=== PATIENT | female | born 1995 ===

== ENCOUNTER 2017-09-09 11:58 | Emergency (ER) | payer OTHER ==
[~2017-09-09] VITALS: Ht 152.4 cm; Wt 108.9 kg
--- NOTE | 2017-09-09 12:25 | ED GI/GU/ABDOMINAL COMPLAINT ---
History of Present Illness General Chief Complaint: Abdominal Pain/Flank Pain Stated Complaint: ?INTESTINAL BLOCK PER PT, HX OF SAME Source: patient Exam Limitations: clinical condition Vital Signs & Intake/Output Vital Signs & Intake/Output Vital Signs Date Time Temp Pulse Resp B/P B/P Pulse O2 O2 Flow FiO2 Mean Ox Delivery Rate 09/09 1841 97.8 88 18 122/74 98 Room Air Room Air 09/09 1445 97.6 78 18 113/55 97 Room Air Room Air 09/09 1208 97.8 112 20 154/87 99 Room Air Allergies Coded Allergies: buspirone (From BUSPAR) (Intermediate, RASH 09/09/17) lamotrigine (From LAMICTAL) (Intermediate, RASH 09/09/17) Reconcile Medications Albuterol Sulfate (Ventolin Hfa) 90 MCG HFA.AER.AD 2 PUF INH Q4-6 PRN PRN asthma Ondansetron (Zofran Odt) 4 MG TAB.RAPDIS 1 TAB SL TID nausea Oxycodone HCl/Acetaminophen (Percocet 5-325 MG Tablet) 5 MG-325 MG TABLET 1 TAB PO 4 TIMES/DAY pain Promethazine HCl 25 MG TABLET 1 TAB PO Q6P PRN nausea Triage Note: PT TO ER C/C 1 DAY HX OF "BOWEL BLOCKAGE". HX OF "AT LEAST 10 EPISODES" OF INTUSSUSSEPTION WHICH USUALLY SELF-CORRECTS. +V LNBM YESTERDAY. LMBP "2 WEEKS AGO" Triage Nurses Notes Reviewed? yes ? N Is pt currently ? No Onset: Abrupt Duration: day(s): Timing: recent history Radiation: no radiation Activities at Onset: none Prior Abdominal Problems: none No Modifying Factors: none HPI: 22-year-old female comes into emergency room complaints of severe abdominal pain has been going on since last night. She has a history of intussusception. She has not had any abdominal surgeries in the past and has resolved on its own. Pain is midabdomen to epigastric region. Sharp. Continuous. Associated nausea vomiting and dry heaves. Denies any changes in bowel movement. She comes in for further evaluation. Past History Travel History Traveled to [place] past 21 day No Medical History Any Pertinent Medical History? see below for history Respiratory: asthma Gastrointestinal: INTUSSUSSEPTION Surgical History Surgical History: non-contributory Psychosocial History What is your primary language Niuean Tobacco Use: Never used Family History Hx Contributory? No Review of Systems Review of Systems Constitutional: Reports: no symptoms. EENTM: Reports: no symptoms. Respiratory: Reports: no symptoms. Cardiovascular: Reports: no symptoms. GI: Reports: see HPI. Genitourinary: Reports: no symptoms. Musculoskeletal: Reports: no symptoms. Skin: Reports: no symptoms. Neurological/Psychological: Reports: no symptoms. Hematologic/Endocrine: Reports: no symptoms. Immunologic/Allergic: Reports: no symptoms. All Other Systems: Reviewed and Negative Physical Exam Physical Exam General Appearance: well developed/nourished, alert, moderate distress Head: atraumatic, normal appearance Eyes: Bilateral: normal appearance, EOMI. Ears, Nose, Throat, Mouth: hearing grossly normal, moist mucous membrane Neck: normal inspection, full range of motion Respiratory: normal breath sounds, no respiratory distress Cardiovascular: regular rate/rhythm Gastrointestinal: soft, tenderness Back: normal inspection Extremities: normal range of motion Neurologic/Psych: awake, alert, oriented x 3 Skin: intact, normal color Core Measures ACS in differential dx? No Sepsis Present: No Sepsis Focused Exam Completed? No Progress Differential Diagnosis: appendicitis, biliary colic, bowel obstruction, cholecystitis, diverticulitis, ectopic , gastritis, ovarian cyst, ovarian torsion, UTI/pyelo, intussusception Plan of Care: Orders Procedure Date/time Status Add-on Test (ER Only) 09/09 1257 Active Add-on Test (ER Only) 09/09 1224 Active LACTIC ACID 09/09 1221 Complete HUMAN BETA HCG SCREEN 09/09 1221 Complete URINE 09/09 1205 Complete URINALYSIS 09/09 1205 Complete COMPREHENSIVE METABOLIC PANEL 09/09 1205 Complete CBC WITHOUT DIFFERENTIAL 09/09 1205 Complete Laboratory Tests 09/09/17 1308: Urine Color YEL, Urine Clarity CLEAR, Urine pH 6.0, Ur Specific [place] >= 1.030 , Urine Protein NEG, Urine Ketones NEG, Urine Nitrite NEG, Urine Bilirubin NEG, Urine Urobilinogen 0.2, Ur Leukocyte Esterase NEG, Ur Microscopic SEDIMENT EXAMINED, Urine RBC 3-5, Ur Epithelial Cells MOD H, Urine Bacteria FEW H, Urine Hemoglobin MOD H, Urine Glucose NEG, Urine Test NEGATIVE 09/09/17 1221: Anion Gap 14, Estimated GFR > 60, BUN/Creatinine Ratio 20.0, Glucose 96, Lactic Acid 1.5, Calcium 9.5, Total Bilirubin 0.5, AST 29, ALT 40, Alkaline Phosphatase 81, Total Protein 8.0, Albumin 4.1, Globulin 3.9, Albumin/Globulin Ratio 1.1, Total Beta HCG NEGATIVE, CBC w Diff NO MAN DIFF REQ, RBC 4.70, MCV 72.8 L, MCH 23.0 L, MCHC 31.5 L, RDW 18.5 H, MPV 9.0, Gran % 73.9, Lymphocytes % 17.4 L, Monocytes % 7.5, Eosinophils % 1.0, Basophils % 0.2, Absolute Granulocytes 10.1 H, Absolute Lymphocytes 2.4, Absolute Monocytes 1.0 H, Absolute Eosinophils 0.1 , Absolute Basophils 0 Diagnostic Imaging: Viewed by Me: CT Scan, Ultrasound. Discussed w/RAD: CT Scan, Ultrasound. Radiology Impression: PATIENT: MEAGAN ARMENDARIZ PRESENT AGE: 22 PATIENT ACCOUNT NO: [id number] : 96 LOCATION: [facility] ORDERING PHYSICIAN: Dunia SHOER SERVICE DATE: 09/09/17 EXAM TYPE: CAT - CT ABD & PELVIS W IV CONTRAST EXAMINATION: CT ABDOMEN AND PELVIS WITH CONTRAST CLINICAL INFORMATION: Abdominal pain, vomiting. History of intussusception. COMPARISON: None. TECHNIQUE: Multidetector volumetric imaging was performed of the abdomen and pelvis following IV administration of 95 mL of Optiray 320 intravenous contrast. Sagittal and coronal reformatted images were obtained on the technologist's workstation. DLP: 1080 mGy-cm FINDINGS: LUNG BASES: The visualized lung bases are unremarkable. LIVER, GALLBLADDER, AND BILIARY TREE: Homogeneous enhancement of the liver. No focal lesions are seen. No intrahepatic biliary dilatation. There is a gallstone present. No obvious gallbladder wall thickening or inflammatory changes in this region. Homogeneous attenuation. No focal lesion seen. PANCREAS: Homogeneous attenuation. No inflammatory changes are seen. SPLEEN: Unremarkable. ADRENAL GLANDS: Unremarkable. KIDNEYS AND URETERS: The kidneys are normal in size, shape, and attenuation. No hydronephrosis, hydroureter, or calculi seen. No perinephric stranding. BLADDER: Underdistended. GASTROINTESTINAL TRACT: The stomach is underdistended limiting evaluation. The small bowel loops are of normal caliber, without evidence of dilatation. Majority of the small bowel loops are nondistended, limiting evaluation for intussusception. There is gas and stool throughout the large colon. No abnormal dilatation is seen. No colonic wall thickening or pericolonic inflammatory changes are evident, allowing for degree of distention. The appendix appears unremarkable. No free fluid. No free air is seen. ABDOMINAL WALL: No significant hernia is appreciated. LYMPH NODES: No pathologically enlarged lymph nodes by size criteria are noted in the abdomen or pelvis. Normal caliber aorta. VASCULAR: Normal caliber aorta. The portal vein is enhancing. PELVIC VISCERA: Evaluation limited on CT, grossly within normal limits. OSSEOUS STRUCTURES: No acute osseous abnormality. No suspicious bony lesions are seen. IMPRESSION: 1. No findings to suggest bowel obstruction. The small bowel loops are nondistended. This limits evaluation for intussusception. 2. No acute findings identified. Etiology of the patient's symptoms has not been determined by CT. Close clinical correlation. Further evaluation as clinically warranted. 3. Gallstone present. No acute inflammatory changes evident by CT. Clinically correlate. If there is clinical concern for cholecystitis, further evaluation with ultrasound should be obtained. DICTATED BY: Baldomero Engle MD DATE/TIME DICTATED:09/09/171401 STEAM PRESS OPERATOR:MARITZA DATE/TIME TRANSCRIBED:1401 CONFIDENTIAL, DO NOT COPY WITHOUT APPROPRIATE AUTHORIZATION. < Electronically signed in Other Vendor System> SIGNED BY: Baldomero Engle MD 09/09/17 1504, PATIENT: MEAGAN ARMENDARIZ PRESENT AGE: 22 PATIENT ACCOUNT NO: [id number] : 96 LOCATION: [facility] ORDERING PHYSICIAN: Memo SHORE SERVICE DATE: 09/09/17 EXAM TYPE : US - US-LIMITED ABDOMEN EXAMINATION: US ABDOMEN LIMITED CLINICAL INFORMATION: Right upper quadrant pain. Gallbladder stone on CAT scan.. COMPARISON: CT scan 09/09/2017. TECHNIQUE: Real-time imaging of the right upper quadrant abdominal viscera. Color Doppler exam used. FINDINGS: Exam limited by body habitus PANCREAS: Partially obscured by bowel gas. Portions of the pancreatic head are visualized are normal. LIVER: Normal. The liver demonstrates normal size, contour and echogenicity. No focal lesion or intrahepatic biliary duct dilatation. GALLBLADDER: There is a gallstone within the gallbladder measuring 8 x 3 x 3 mm. There is no gallbladder wall thickening and no pericholecystic fluid. COMMON BILE DUCT: Normal in caliber measuring 0.4 cm in diameter. RIGHT KIDNEY: Normal. No hydronephrosis. No renal calculi or focal parenchymal lesions. The kidney measures 9.5 cm in maximum dimension. FREE FLUID: None. IMPRESSION: Cholelithiasis. No acute change of the gallbladder wall. No bile duct dilatation. DICTATED BY: Mauricio Jackson MD DATE/TIME DICTATED:09/09/171806 STEAM PRESS OPERATOR:MARITZA DATE/TIME TRANSCRIBED:09/09/171806 CONFIDENTIAL, DO NOT COPY WITHOUT APPROPRIATE AUTHORIZATION. <Electronically signed in Other Vendor System> SIGNED BY: Mauricio Jackson MD 09/09/171811 Initial ED EKG: none Comments: 09/09/2017 7:05:46 PM Patient clinically looks well. Patient is in no apparent distress. Patient is nontoxic-appearing. Patient resting comfortably in room. Symptoms are most consistent with biliary colic. No evidence of acute cholecystitis. Pain improved. Resting comfortably in room upon reevaluation multiple times. Follow -up as an outpatient with surgery. Return if any other concerns. Departure Departure Disposition: HOME OR SELF CARE Condition: Stable Clinical Impression Primary Impression: Cholelithiasis Referrals: Regan HILL,Theo N. Additional Instructions: Take promethazine, Zofran, Percocet, and Ventolin as prescribed. Follow-up with general surgeon provided. Return if any increased pain or any other concerns worsening symptoms. Decrease fatty foods in diet. Please go over all results of today's visit with your primary care doctor. Contact your primary care doctor to let them know you were here in the emergency room. There may be nonspecific findings which may not be related to your visit today here in the emergency room but may require further evaluation and chronic monitoring by your primary care doctor. If you had a laceration today the chance of foreign body always remains. You should follow-up with your primary care doctor for recheck in 3-5 days for a wound check. If you had an x-ray done there is a chance that a fracture could have been missed on initial read and you should follow-up with your primary care doctor for repeat x-rays if symptoms persist. If your blood pressure was elevated here in the emergency room please have rechecked by [facility] primary care doctor within the next 48. If you were prescribed a narcotic here in the emergency room or any type of controlled substances you're not allowed to drive while taking this medication or operate any type of heavy machinery. Narcotics can make you feel lightheaded dizziness nausea and can cause constipation. You may need to picker and packer a stool softener. Thank you for choosing [facility] emergency room. Please return to the emergency room immediately if you have any other concerns worsening of symptoms. Departure Forms: Customer Survey General Discharge Information Prescriptions: Current Visit Scripts Ondansetron (Zofran Odt) 1 TAB SL TID #10 TAB Promethazine HCl 1 TAB PO Q6P PRN nausea #30 TAB Oxycodone HCl/Acetaminophen (Percocet 5-325 MG Tablet) 1 TAB PO 4 TIMES/DAY #15 TAB Albuterol Sulfate (Ventolin Hfa) 2 PUF INH Q4-6 PRN PRN asthma #1 INHAL
[2017-09-09 12:44] LABS: ABSOLUTE BASOPHIL COUNT 0 /CUMM (0.0-0.2); ABSOLUTE EOSINOPHIL COUNT 0.1 /CUMM (0.0-0.7); ABSOLUTE GRANULOCYTE CT 10.1 /CUMM (1.4-6.5); ABSOLUTE LYMPH COUNT 2.4 /CUMM (1.2-3.4); BASOPHIL % 0.2 % (0.0-2.0); GRANULOCYTE % 73.9 % (42.2-75.2); HEMATOCRIT 34.2 % (37-47); MEAN CORPUSCULAR HGB CONC 31.5 G/DL (33.0-37.0); MEAN CORPUSCULAR VOLUME 72.8 FL (81.0-99.0); PLATELET COUNT 460 /CUMM (130-400); RBC DISTRIBUTION WIDTH 18.5 % (11.5-14.5); WHITE BLOOD CELL COUNT 13.7 /CUMM (4.8-10.8)
--- NOTE | 2017-09-09 15:04 | CT SCAN REPORT ---
EXAMINATION: CT ABDOMEN AND PELVIS WITH CONTRAST CLINICAL INFORMATION: Abdominal pain, vomiting. History of intussusception. COMPARISON: None. TECHNIQUE: Multidetector volumetric imaging was performed of the abdomen and pelvis following IV administration of 95 mL of Optiray 320 intravenous contrast. Sagittal and coronal reformatted images were obtained on the technologist's workstation. DLP: 1080 mGy-cm FINDINGS: LUNG BASES: The visualized lung bases are unremarkable. LIVER, GALLBLADDER, AND BILIARY TREE: Homogeneous enhancement of the liver. No focal lesions are seen. No intrahepatic biliary dilatation. There is a gallstone present. No obvious gallbladder wall thickening or inflammatory changes in this region. Homogeneous attenuation. No focal lesion seen. PANCREAS: Homogeneous attenuation. No inflammatory changes are seen. SPLEEN: Unremarkable. ADRENAL GLANDS: Unremarkable. KIDNEYS AND URETERS: The kidneys are normal in size, shape, and attenuation. No hydronephrosis, hydroureter, or calculi seen. No perinephric stranding. BLADDER: Underdistended. GASTROINTESTINAL TRACT: The stomach is underdistended limiting evaluation. The small bowel loops are of normal caliber, without evidence of dilatation. Majority of the small bowel loops are nondistended, limiting evaluation for intussusception. There is gas and stool throughout the large colon. No abnormal dilatation is seen. No colonic wall thickening or pericolonic inflammatory changes are evident, allowing for degree of distention. The appendix appears unremarkable. No free fluid. No free air is seen. ABDOMINAL WALL: No significant hernia is appreciated. LYMPH NODES: No pathologically enlarged lymph nodes by size criteria are noted in the abdomen or pelvis. Normal caliber aorta. VASCULAR: Normal caliber aorta. The portal vein is enhancing. PELVIC VISCERA: Evaluation limited on CT, grossly within normal limits. OSSEOUS STRUCTURES: No acute osseous abnormality. No suspicious bony lesions are seen. IMPRESSION: 1. No findings to suggest bowel obstruction. The small bowel loops are nondistended. This limits evaluation for intussusception. 2. No acute findings identified. Etiology of the patient's symptoms has not been determined by CT. Close clinical correlation. Further evaluation as clinically warranted. 3. Gallstone present. No acute inflammatory changes evident by CT. Clinically correlate. If there is clinical concern for cholecystitis, further evaluation with ultrasound should be obtained.
--- NOTE | 2017-09-09 18:12 | ULTRASOUND REPORT ---
EXAMINATION: US ABDOMEN LIMITED CLINICAL INFORMATION: Right upper quadrant pain. Gallbladder stone on CAT scan.. COMPARISON: CT scan 09/09/2017. TECHNIQUE: Real-time imaging of the right upper quadrant abdominal viscera. Color Doppler exam used. FINDINGS: Exam limited by body habitus PANCREAS: Partially obscured by bowel gas. Portions of the pancreatic head are visualized are normal. LIVER: Normal. The liver demonstrates normal size, contour and echogenicity. No focal lesion or intrahepatic biliary duct dilatation. GALLBLADDER: There is a gallstone within the gallbladder measuring 8 x 3 x 3 mm. There is no gallbladder wall thickening and no pericholecystic fluid. COMMON BILE DUCT: Normal in caliber measuring 0.4 cm in diameter. RIGHT KIDNEY: Normal. No hydronephrosis. No renal calculi or focal parenchymal lesions. The kidney measures 9.5 cm in maximum dimension. FREE FLUID: None. IMPRESSION: Cholelithiasis. No acute change of the gallbladder wall. No bile duct dilatation.
[2017-09-09] MEDS ORDERED: VENTOLIN HFA18 GM INH (18:36)
[2017-09-09] MEDS ORDERED: ZOFRAN ODT4 M1 SL (18:36)
[2017-09-09] MEDS ORDERED: PERCOCET 5-3251 EACH PO (18:36)
[2017-09-09] MEDS ORDERED: PROMETHAZINE HC25 M3 PO (18:36)
[2017-09-09 18:41] VITALS: BP 122/74
== END 2017-09-09 18:57 ==
LOC: ERH 11:58
PROVIDERS: Physician Assistant
DX: K80.20 Calculus of gallbladder without cholecystitis without obstruction (principal)
CPT/HCPCS: 74177; 81001; 81025; 96374; 96375; J2405; J2550

== ENCOUNTER → 2017-10-03 | Day surgery (SDC) | payer OTHER ==
[~2017-10-03] VITALS: Ht 152.4 cm; Wt 107.0 kg
[~2017-10-03] MED LIST: PERCOCET 5-3251 EACH PO; PROMETHAZINE HC25 M3 PO; VENTOLIN HFA18 GM INH; ZOFRAN ODT4 M1 SL
--- NOTE | 2017-10-06 09:34 | Operative Report ---
Operative/Inv Procedure Report Surgery Date: 10/03/17 Name of Procedure: Laparoscopic cholecystectomy Pre-Operative Diagnosis: Symptomatic gallstones Post-Operative Diagnosis: Hydrops, cholecystitis Estimated Blood Loss: scant Surgeon/Sewing Machine Repairer Helper: Regan HILL,Theo SHORE Anesthesia: general endotracheal tube Operative/Procedure Note Note: Patient was positioned supine. After successful induction of general anesthesia, the patient's abdomen was clipped, prepped and draped in the usual sterile fashion. Local anesthetic was injected at the top of the umbilicus and then a curved horizontal incision little over a centimeter was made there with a 15 blade and then deepened to the midline fascia which was incised vertically a little over a centimeter. Both sides were secured with 0 Vicryl stay sutures and then the thin peritoneal layer was entered, 10 mm Dumont trocar inserted obliquely to the right, and the gas was turned on to 15 mm. After insufflation and repositioning to reverse Trendelenburg, 3 more dissecting 5 mm trochars were placed in the right subcostal area, first lateral, then mid-subcostal, then subxiphoid. The gallbladder was edematous, first decompressed with needle, white bile then the fundus was grasped from the lateral port and retracted up over the edge of the liver and then we dissected out the area of the triangle of Calot while retracting the infundibulum caudally / laterally. First the cystic duct was identified, isolated at the neck, clipped 3 times, divided after the second clip and then in similar fashion the cystic artery was identified medially, dissected and divided. Then the gallbladder was from the liver bed using cautery then lowered into an Endobag and removed through the umbilical incision. The instruments and then the trochars were removed letting the gas escape. The fascial incision was closed with a figure 8 Vicryl then all 4 skin incisions were closed with interrupted subcuticular 4-0 Monocryl, followed by Mastisol Steri-Strips and Bandaids. Estimated blood loss was minimal, lap and sponge counts were correct, wound expectancy was clean-contaminated, IV fluids crystalloid, complications none, patient tolerated the procedure well and was returned to the recovery room in satisfactory condition.
== END ==
LOC: STS 01:20
DX: K80.10 Calculus of gallbladder with chronic cholecystitis without obstruction (principal); K82.1 Hydrops of gallbladder; K21.9 Gastro-esophageal reflux disease without esophagitis; J45.909 Unspecified asthma, uncomplicated
CPT/HCPCS: 81025; J0131; J0690; J1100; J2250; J2765; J3490